=== PATIENT | male | born 1995 | race African-American/Black ===

== ENCOUNTER 2017-07-01 23:21 | Emergency (ER) | payer BC ==
[~2017-07-01] VITALS: Ht 188 cm; Wt 68.2 kg
[2017-07-01 23:22] VITALS: BP 137/87
== END 2017-07-02 03:08 | disposition left against medical advice (07) ==
LOC: M ED 23:21
DX: M54.9 Dorsalgia, unspecified (principal); Z53.21 Procedure and treatment not carried out due to patient leaving prior to being seen by health care provider

== ENCOUNTER 2017-07-14 12:05 | Inpatient (IN) | payer BC ==
[~2017-07-14] VITALS: Ht 188 cm; Wt 64.0 kg
[2017-07-14] MEDS ORDERED: muscle relaxer (12:14)
[2017-07-14 12:52] LABS: MEAN CORPUSCULAR HEMOGLOBIN 26.7 pg (27.0-33.0); MEAN CORPUSCULAR HGB CONC 32.1 g/dl (32.0-36.5); MEAN CORPUSCULAR VOLUME 83.1 fl (80.0-96.0); PLATELET COUNT, AUTOMATED 436 10^3/uL (150-450); RED CELL DISTRIBUTION WIDTH 12.4 % (11.5-14.5); WHITE BLOOD COUNT 8.5 10^3/uL (4.0-10.0)
[2017-07-14 13:14] LABS: METHADONE URINE NEGATIVE (NEGATIVE)
[2017-07-14 13:22] LABS: ALBUMIN 3.8 GM/DL (3.2-5.2); ALBUMIN/GLOBULIN RATIO 0.81 (1.00-1.93); ALKALINE PHOSPHATASE 101 U/L (45-117); ALT/SGPT 44 U/L (12-78); ANION GAP 8 MEQ/L (8-16); AST/SGOT 59 U/L (7-37); BILIRUBIN,DIRECT 0.1 MG/DL (0.0-0.2); BILIRUBIN,TOTAL 0.4 MG/DL (0.2-1.0); BLOOD UREA NITROGEN 16 MG/DL (7-18); CARBON DIOXIDE LEVEL 29 MEQ/L (21-32); CHLORIDE LEVEL 104 MEQ/L (98-107); CREATININE FOR GFR 1.04 MG/DL (0.70-1.30); GLOMERULAR FILTRATION RATE > 60.0 (>60); GLUCOSE, FASTING 81 MG/DL (70-105); POTASSIUM SERUM 3.8 MEQ/L (3.5-5.1); SODIUM LEVEL 141 MEQ/L (136-145); TOTAL PROTEIN 8.5 GM/DL (6.4-8.2)
[2017-07-14] MEDS ORDERED: MOM 30ML SUSPENSION UDC PO PRN (14:30)
[2017-07-14] MEDS ORDERED: MAALOX 30 ML SUSP *UDC PO PRN (14:30)
[2017-07-14] MEDS ORDERED: ACETAMINOPHEN TAB 650MG DOSE (2X325MG) PO PRN (14:30)
[2017-07-14 15:40] VITALS: BP 147/69
--- NOTE | 2017-07-14 17:01 | MHHPEPDOC ---
[facility] History & Physical History and Physical DATE OF ADMISSION: Jul 14, 2017 at 14:30 LEGAL STATUS AT ADMISSION: CHIEF COMPLAINT: SI HISTORY OF PRESENT ILLNESS: Patient is a 22-year-old male, no reported PMH, no prior PSH, no prior psychiatric hospitalizations, no prior SA, presents for depression and SI. Patient endorses feeling depressed, poor concentration, lost 15 lbs in 2 weeks due to depression, poor sleep for about 2 weeks, with SI without intent and plan beginning today. Denies manic symptoms, denies AVH, denies PTSD symptoms. Patient describes waking up in the middle of the night feeling anxious, which he attributes to his limbs jerking and to having a feeling that he is falling or dying in his sleep. Currently denies SI intent and plan. Denies depression for more than a few weeks in the past, though has cut his wrists when he was a teenager. Denies history of SI intent and plan prior to this episode. Recent stressor includes issues with his gf, stress involving having a baby 1 month ago and caring for the baby, disputes about paying for rent. Patient moved to [place] a few months ago without family. Of note, patient was advised to come to the hospital by his vocational case manager. Sees therapist at [facility], has seen only once, last week. Has not seen a psychiatrist in the past. 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 MENTAL STATUS EXAMINATION: General appearance: casually groomed Speech: normal RRVT Thought processes: linear Thought content: appropriate to conversation Judgment: fair Insight: fair Orientation: AAOx3 Mood: "overwhelmed" Affect: anxious DIAGNOSES: 1. Acute stress disorder 2. cannabis use disorder ASSESSMENT: PROBLEM LIST: 1. SI 2. depression 3. MJ use INITIAL TREATMENT PLAN: 1. Patient was admitted on a . 2. Complete history was obtained. 3. With patients permission, family will be contacted and database will be expanded. 4. Patients medication regimen will be reviewed and changed accordingly. 5. Patient will be provided with protected environment. 6. Patient will be treated with individual, group, and milieu therapies. 7. Patient will receive supportive psych-education. 8. Discharge planning will commence immediately. 9. Outpatient follow-up treatment will be strongly recommended. - Begin gabapentin 300 mg qhs for sleep and anxiety - Mirtazapine 7.5 mg qhs for sleep and appetite - PRN: tylenol, MOM, mylanta, trazodone ESTIMATED LENGTH OF STAY: 3 DAYS. TIME SPENT COUNSELING AND COORDINATING INITIAL CARE: 20 minutes. Vital Signs Vital Signs Date Time Temp Pulse Resp B/P (MAP) Pulse Ox O2 Delivery O2 Flow Rate FiO2 07/14/17 15:04 81 18 143/83 (103) 07/14/17 12:36 97.1 07/14/17 12:09 100 Laboratory Data 24H Labs Laboratory Tests 2 07/14/17 12:33: Nucleated Red Blood Cells % (auto) 0.0, Anion Gap 8, Glomerular Filtration Rate > 60.0, Calcium Level 9.0, Aspartate Amino Transf (AST/SGOT) 59H, Alanine Aminotransferase (ALT/SGPT) 44, Alkaline Phosphatase 101, Total Bilirubin 0.4, Direct Bilirubin 0.1, Total Protein 8.5H, Albumin 3.8, Albumin/Globulin Ratio 0.81L, Thyroid Stimulating Hormone (TSH) 0.720, Salicylates Level < 1.7L, Urine Amphetamines Screen NEGATIVE, Urine Benzodiazepines Screen NEGATIVE, Urine Opiates Screen NEGATIVE, Urine Methadone Screen NEGATIVE, Acetaminophen Level < 2.0L, Urine Barbiturates Screen NEGATIVE, Urine Phencyclidine Screen NEGATIVE, Urine Cocaine Metabolite Screen NEGATIVE, Urine Cannabinoids Screen POSITIVEH, Ethyl Alcohol Level < 0.003 CBC/BMP Laboratory Tests 07/14/17 12:33 Red Blood Count 4.91, Mean Corpuscular Volume 83.1, Mean Corpuscular Hemoglobin 26.7 L, Mean Corpuscular Hemoglobin Concent 32.1, Red Cell Distribution Width 12.4 Medications Miscellaneous Medications [muscle relaxer] , (Reported) Allergies Coded Allergies: No Known Allergies (Unverified , 07/01/17) KYE BARRAZA MD Jul 14, 2017 16:51
[2017-07-14] MEDS: GABAPENTIN 300 MG CAP PO SCH (21:20)
[2017-07-14] MEDS: MIRTAZAPINE 7.5MG PER 1/2 TABLET PO SCH (21:20)
[2017-07-14] MEDS: traZODone 50 MG TAB PO PRN (21:21)
[2017-07-15 06:31] VITALS: BP 105/65
[2017-07-15] MEDS: NICOTINE 21MG/24HR 1 EA TRANSDERMAL TD SCH (09:00)
--- NOTE | 2017-07-15 09:17 | MHIPNPDOC ---
[facility] Progress Note Progress Note DATE OF SERVICE: 07/15/17 HISTORY: Patient reports sleeping 9 hours last night, without nightmare of feeling like he is dying. Patient reports depressed mood last night, currently still depressed but not to the point of wishing to cry. Denies unwarranted side effects from medications. Patient denies SI intent and plan. Asks about other medications available for "daytime" usage. VITAL SIGNS: See below. NEW TEST RESULTS: NA CURRENT MEDICATIONS: See below. MENTAL STATUS EXAMINATION: General appearance: casually groomed Speech: normal RRVT Thought processes: linear Thought content: appropriate to conversation Judgment: fair Insight: fair Orientation: AAOx3 Mood: "overwhelmed" Affect: anxious DIAGNOSES: 1. Acute stress disorder 2. cannabis use disorder ASSESSMENT: PROBLEM LIST: 1. SI 2. depression 3. MJ use - Continue gabapentin 300 mg qhs for sleep and anxiety - Continue Mirtazapine 7.5 mg qhs for sleep and appetite - PRN: tylenol, MOM, mylanta, trazodone ESTIMATED LENGTH OF STAY: 5 DAYS. TIME SPENT COUNSELING AND COORDINATING INITIAL CARE: 20 minutes. Vital Signs Vital Signs Date Time Temp Pulse Resp B/P (MAP) Pulse Ox O2 Delivery O2 Flow Rate FiO2 07/15/17 06:31 98.1 56 16 105/65 (78) 07/14/17 15:40 97 Room Air Laboratory Data 24H Labs Laboratory Tests 2 07/14/17 12:33: Nucleated Red Blood Cells % (auto) 0.0, Anion Gap 8, Glomerular Filtration Rate > 60.0, Calcium Level 9.0, Aspartate Amino Transf (AST/SGOT) 59H, Alanine Aminotransferase (ALT/SGPT) 44, Alkaline Phosphatase 101, Total Bilirubin 0.4, Direct Bilirubin 0.1, Total Protein 8.5H, Albumin 3.8, Albumin/Globulin Ratio 0.81L, Thyroid Stimulating Hormone (TSH) 0.720, Salicylates Level < 1.7L, Urine Amphetamines Screen NEGATIVE, Urine Benzodiazepines Screen NEGATIVE, Urine Opiates Screen NEGATIVE, Urine Methadone Screen NEGATIVE, Acetaminophen Level < 2.0L, Urine Barbiturates Screen NEGATIVE, Urine Phencyclidine Screen NEGATIVE, Urine Cocaine Metabolite Screen NEGATIVE, Urine Cannabinoids Screen POSITIVEH, Ethyl Alcohol Level < 0.003 CBC/BMP Laboratory Tests 07/14/17 12:33 Red Blood Count 4.91, Mean Corpuscular Volume 83.1, Mean Corpuscular Hemoglobin 26.7 L, Mean Corpuscular Hemoglobin Concent 32.1, Red Cell Distribution Width 12.4 Current Medications Current Medications Acetaminophen (Tylenol Tab) 650 mg Q6HP PRN PO HEADACHE or DISCOMFORT; Start 07/14/17 at 14:30; Stop 08/13/17 at 14:29 Al Hydrox/Mg Hydrox/Simethicone (Mylanta) 30 ml Q4HP PRN PO HEARTBURN/ INDIGESTION; Start 07/14/17 at 14:30; Stop 08/13/17 at 14:29 Gabapentin (Neurontin) 300 mg QHS PO Last administered on 07/14/17 21:20; Start 07/14/17 at 21:00; Stop 08/13/17 at 20:59 Magnesium Hydroxide (Milk Of Magnesia) 30 ml DAILYPRN PRN PO CONSTIPATION; Start 07/14/17 at 14:30; Stop 08/13/17 at 14:29 Mirtazapine (Remeron) 7.5 mg QHS PO Last administered on 07/14/17 21:20; Start 07/14/17 at 21:00; Stop 08/13/17 at 20:59 Nicotine (Nicoderm Cq 21mg) 1 patch DAILY TD ; Start 07/15/17 at 09:00; Stop 08/14/17 at 08:59 Trazodone HCl (Desyrel) 50 mg QHSP PRN PO INSOMNIA Last administered on 21:21; Start 07/14/17 at 14:30; Stop 08/13/17 at 14:29 Allergies Coded Allergies: No Known Allergies (Unverified , 07/01/17) KYE BARRAZA MD Jul 15, 2017 09:17
[2017-07-15 18:00] VITALS: BP 138/80
[2017-07-15] MEDS: traZODone 50 MG TAB PO PRN (20:28)
[2017-07-15] MEDS: GABAPENTIN 300 MG CAP PO SCH (20:28)
[2017-07-15] MEDS: MIRTAZAPINE 7.5MG PER 1/2 TABLET PO SCH (20:28)
[2017-07-16 07:07] VITALS: BP 110/60
[2017-07-16] MEDS: NICOTINE 21MG/24HR 1 EA TRANSDERMAL TD SCH (08:06)
--- NOTE | 2017-07-16 09:55 | MHIPNPDOC ---
[facility] Progress Note Progress Note DATE OF SERVICE: 07/16/17 HISTORY: Patient reports good sleep, denies side effects, states his mood is good, denies SI intent and plan. States he believes he is ready to go home. Motivated to seek outpatient treatment and to continue medications outpatient. VITAL SIGNS: See below. NEW TEST RESULTS: NA CURRENT MEDICATIONS: See below. MENTAL STATUS EXAMINATION: General appearance: casually groomed Speech: normal RRVT Thought processes: linear Thought content: appropriate to conversation Judgment: fair Insight: fair Orientation: AAOx3 Mood: "good" Affect: euthymic, appropriate DIAGNOSES: 1. Acute stress disorder 2. cannabis use disorder ASSESSMENT: Patient's mood has been improving, largely due to better sleep. PROBLEM LIST: 1. SI 2. depression 3. MJ use - Continue gabapentin 300 mg qhs for sleep and anxiety - Continue Mirtazapine 7.5 mg qhs for sleep and appetite - PRN: tylenol, MOM, mylanta, trazodone - Discharge on Monday ESTIMATED LENGTH OF STAY: 5 DAYS. TIME SPENT COUNSELING AND COORDINATING INITIAL CARE: 20 minutes. Vital Signs Vital Signs Date Time Temp Pulse Resp B/P (MAP) Pulse Ox O2 Delivery O2 Flow Rate FiO2 07/16/17 07:07 97.6 50 14 110/60 (77) 07/14/17 15:40 97 Room Air Current Medications Current Medications Acetaminophen (Tylenol Tab) 650 mg Q6HP PRN PO HEADACHE or DISCOMFORT; Start 07/14/17 at 14:30; Stop 08/13/17 at 14:29 Al Hydrox/Mg Hydrox/Simethicone (Mylanta) 30 ml Q4HP PRN PO HEARTBURN/ INDIGESTION; Start 07/14/17 at 14:30; Stop 08/13/17 at 14:29 Gabapentin (Neurontin) 300 mg QHS PO Last administered on 07/15/17 20:28; Start 07/14/17 at 21:00; Stop 08/13/17 at 20:59 Magnesium Hydroxide (Milk Of Magnesia) 30 ml DAILYPRN PRN PO CONSTIPATION; Start 07/14/17 at 14:30; Stop 08/13/17 at 14:29 Mirtazapine (Remeron) 7.5 mg QHS PO Last administered on 07/15/17 20:28; Start 07/14/17 at 21:00; Stop 08/13/17 at 20:59 Nicotine (Nicoderm Cq 21mg) 1 patch DAILY TD ; Start 07/15/17 at 09:00; Stop 08/14/17 at 08:59 Trazodone HCl (Desyrel) 50 mg QHSP PRN PO INSOMNIA Last administered on t 20:28; Start 07/14/17 at 14:30; Stop 08/13/17 at 14:29 Allergies Coded Allergies: No Known Allergies (Unverified , 07/01/17) KYE BARRAZA MD Jul 16, 2017 09:55
--- NOTE | 2017-07-16 11:36 | HPE ---
DATE OF ADMISSION: 07/14/2017 Please refer to the psychiatric history and evaluation for further details on this admission. This examination and history is intended for medical issues which may need treatment, followup or consultation on this 22-year-old male. ALLERGIES: No known allergies. PRIMARY CARE PROVIDER: He does not currently have one. He has recently moved here from [place], he states to be with his daughter. SOCIAL HISTORY: He is single. He has a one month old girl. ETOH - none. Smokes - one cigarette per day. Recreational drug use - none. PAST MEDICAL HISTORY: Negative. PAST SURGICAL HISTORY: Negative. HOME MEDICATIONS: None. FAMILY HISTORY: Noncontributory. LABORATORY STUDIES: WBC 8.5, hemoglobin 15.1, hematocrit 40.8 and platelets 436. Electrolytes are normal. BUN 16, creatinine 1.04. AST 59. ALT 44. TSH is 0.720. REVIEW OF SYSTEMS: Ten systems review was done and was unremarkable. PHYSICAL EXAMINATION: 22-year-old cooperative male in no acute distress. Height 74 inches. Weight 65.9 kg. Body mass index (BMI) 18.7. Blood pressure 140/80. Pulse 80. Respirations 18. Temperature 98. The patient is alert and oriented times three. Pupils equal and reactive to light. Extraocular movements intact. Cornea and sclera clear. Conjunctiva normal. No facial asymmetry. Pharynx, tongue and gums pink and moist. Tongue is midline. Neck is supple, without lymphadenopathy. No thyromegaly. No goiter. Chest clear to auscultation, without wheeze or retraction. Heart is regular. Abdomen benign. Bowel sounds positive. Genitourinary ()/Rectal: Not done. Extremities show equal strength, full range of motion. No cyanosis, clubbing or edema. Peripheral pulses equal and palpable bilaterally. Skin is warm and dry. IMPRESSION AND PLAN: 1. Psychiatric. Plan per psychiatry. 2. History of elevated AST. Will recheck labs in the a.m.
[2017-07-16 18:00] VITALS: BP 118/82
[2017-07-16] MEDS: GABAPENTIN 300 MG CAP PO SCH (20:17)
[2017-07-16] MEDS: traZODone 50 MG TAB PO PRN (20:17)
[2017-07-16] MEDS: MIRTAZAPINE 7.5MG PER 1/2 TABLET PO SCH (20:17)
[2017-07-17 06:00] VITALS: BP 129/61
--- NOTE | 2017-07-17 09:30 | MHDSPDOC ---
[facility] Discharge Summary Discharge Summary DATE OF ADMISSION: Jul 14, 2017 at 14:30 DATE OF DISCHARGE: 07/17/17 DISCHARGE DIAGNOSES: 1. MDD 2. cannabis use disorder REASON FOR ADMISSION: 22-year-old male, no reported PMH, no prior PSH, no prior psychiatric hospitalizations, no prior SA, presents for depression and SI. Patient endorses feeling depressed, poor concentration, lost 15 lbs in 2 weeks due to depression, poor sleep for about 2 weeks, with SI without intent and plan beginning today. Denies manic symptoms, denies AVH, denies PTSD symptoms. Patient describes waking up in the middle of the night feeling anxious, which he attributes to his limbs jerking and to having a feeling that he is falling or dying in his sleep. Currently denies SI intent and plan. Denies depression for more than a few weeks in the past, though has cut his wrists when he was a teenager. Denies history of SI intent and plan prior to this episode. Recent stressor includes issues with his gf, stress involving having a baby 1 month ago and caring for the baby, disputes about paying for rent. Patient moved to [place] a few months ago without family. Of note, patient was advised to come to the hospital by his shelter case manager. Patient mentioned experiencing restlessness at night, in which his limbs would kick out, giving him dreams of dying or falling, waking him up. Patient denies nightmares of prior trauma, did not mention sleep walking. Denies feeling any tingling pain in his legs. Patient only sleeping several hours at night due to anxiety. Sees therapist at [facility], has seen only once, last week. Has not seen a psychiatrist in the past. CONSULTANTS INVOLVED: NA TREATMENT AND PROGRESS ON THE UNIT : Patient was put on mirtazapine 7.5 mg qhs for sleep, mood, and appetite, and gabapentin 300 mg qhs for his nighttime restlessless. Patient began sleeping 8 hours on the unit, and his mood improved over the hospital course. Patient attributes his improvement in mood to sleeping better. Patient also stated that his appetite returned. He was cooperative and sociable on the unit. DISCHARGE ASSESSMENT: Patient was euthymic, related, future oriented, and motivated to continue outpatient treatment. MENTAL STATUS EXAMINATION ON DISCHARGE: Denise: Thin AA male, casually groomed Behavior: calm, cooperative, good eye contact, related Speech normal RRVT. Thought processes including: linear Thought content: appropriate to conversation Judgment: fair Insight: fair Orientation to AAOx3 Mood: good Affect: euthymic, appropriate MEDICATIONS ON DISCHARGE: - Continue gabapentin 300 mg qhs for sleep and anxiety - Continue Mirtazapine 7.5 mg qhs for sleep and appetite PLAN/FOLLOWUP ARRANGEMENTS: [facility] The amount of time spent in the coordination of care for this patient was approximately minutes. Vital Signs/I&Os Vital Signs Date Time Temp Pulse Resp B/P (MAP) Pulse Ox O2 Delivery O2 Flow Rate FiO2 07/17/17 06:00 98.1 66 14 129/61 (83) 07/14/17 15:40 97 Room Air Medications Miscellaneous Medications [muscle relaxer] , (Reported) Allergies Coded Allergies: No Known Allergies (Unverified , 07/01/17) KYE BARRAZA MD Jul 17, 2017 09:30
[2017-07-17] MEDS ORDERED: MIRT15TA3 PO (09:33)
[2017-07-17] MEDS ORDERED: GABA-282 PO (09:33)
[2017-07-17] MEDS: NICOTINE 21MG/24HR 1 EA TRANSDERMAL TD SCH (10:14)
== END 2017-07-17 13:10 | disposition home or self-care (01) | DRG 754 ==
LOC: M ED 12:05 → M ED INP 14:30 → M PSY 15:32
PROVIDERS: ADMIT Psychiatry & Neurology Psychiatry; ATTEND Psychiatry & Neurology Psychiatry
DX: F32.9 Major depressive disorder, single episode, unspecified (principal); F12.90 Cannabis use, unspecified, uncomplicated

== ENCOUNTER → 2017-10-21 | Outpatient (REF) | payer BC ==
[2017-10-21 22:49] LABS: CHLAMYDIA DNA AMPLIFICATION NEGATIVE (NEGATIVE); GC DNA AMPLIFICATION NEGATIVE (NEGATIVE)
== END ==
LOC: M LAB REF 09:18
DX: A74.9 Chlamydial infection, unspecified (principal)
CPT/HCPCS: 87591

== ENCOUNTER 2017-10-29 17:37 | Emergency (ER) | payer BC ==
[2017-10-29 19:29] LABS: BASO % 0.5 % (0.0-1.0); EOS # 0.2 10^3/uL (0.0-0.50); HEMATOCRIT 37.5 % (42.0-52.0); HEMOGLOBIN 12.3 g/dl (14.0-18.0); IMMATURE GRANULOCYTE % 0.2 % (0-3.0); LYMPH # 2.3 10^3/uL (1.5-6.5); LYMPH % 28.2 % (24.0-44.0); MEAN CORPUSCULAR HEMOGLOBIN 27.6 pg (27.0-33.0); MEAN CORPUSCULAR HGB CONC 32.8 g/dl (32.0-36.5); MEAN CORPUSCULAR VOLUME 84.1 fl (80.0-96.0); MONO # 0.5 10^3/uL (0.0-0.8); MONO % 6.7 % (0.0-5.0); NEUTROPHILS % 62.4 % (36.0-66.0); PLATELET COUNT, AUTOMATED 231 10^3/uL (150-450); RED BLOOD COUNT 4.46 10^6/uL (4.30-6.10); RED CELL DISTRIBUTION WIDTH 12.3 % (11.5-14.5)
[2017-10-29 19:48] LABS: INR 1.09; PROTHROMBIN TIME 14.3 SECONDS (12.4-14.5)
[2017-10-29 19:49] LABS: PARTIAL THROMBOPLASTIN TIME 29.5 SECONDS (26.8-37.9)
[2017-10-29 19:56] LABS: ALBUMIN 3.6 GM/DL (3.2-5.2); ALKALINE PHOSPHATASE 118 U/L (45-117); ALT/SGPT 40 U/L (12-78); ANION GAP 8 MEQ/L (8-16); AST/SGOT 48 U/L (7-37); BILIRUBIN,TOTAL 0.4 MG/DL (0.2-1.0); BLOOD UREA NITROGEN 12 MG/DL (7-18); CALCIUM LEVEL 8.7 MG/DL (8.5-10.1); CARBON DIOXIDE LEVEL 28 MEQ/L (21-32); CHLORIDE LEVEL 106 MEQ/L (98-107); GLOMERULAR FILTRATION RATE > 60.0 (>60); GLUCOSE, FASTING 96 MG/DL (70-100); POTASSIUM SERUM 3.7 MEQ/L (3.5-5.1); SODIUM LEVEL 142 MEQ/L (136-145); TOTAL PROTEIN 7.2 GM/DL (6.4-8.2)
[2017-10-29] MEDS: SIMETHICONE 80 MG CHEW TAB PO (20:35)
== END 2017-10-29 20:37 | disposition home or self-care (01) ==
LOC: M ED 17:37
DX: K92.1 Melena (principal); F17.200 Nicotine dependence, unspecified, uncomplicated
CPT/HCPCS: 80053

== ENCOUNTER 2018-07-08 13:00 | Emergency (ER) | payer BC ==
[2018-07-08 13:35] LABS: BASO % 0.1 % (0.0-1.0); EOS % 0.1 % (0.0-3.0); HEMATOCRIT 41.5 % (42.0-52.0); HEMOGLOBIN 13.5 g/dl (13.5-17.5); IMMATURE GRANULOCYTE % 0.4 % (0-3.0); LYMPH # 0.8 10^3/uL (1.5-6.5); LYMPH % 5.8 % (24.0-44.0); MEAN CORPUSCULAR HEMOGLOBIN 27.9 pg (27.0-33.0); MEAN CORPUSCULAR HGB CONC 32.5 g/dl (32.0-36.5); MEAN CORPUSCULAR VOLUME 85.7 fl (80.0-96.0); MONO # 0.5 10^3/uL (0.0-0.8); MONO % 3.7 % (0.0-5.0); NEUTROPHILS % 89.9 % (36.0-66.0); PLATELET COUNT, AUTOMATED 228 10^3/uL (150-450); RED BLOOD COUNT 4.84 10^6/uL (4.30-6.10); RED CELL DISTRIBUTION WIDTH 12.2 % (11.5-14.5); WHITE BLOOD COUNT 13.4 10^3/uL (4.0-10.0)
[2018-07-08 14:02] LABS: INFLUENZA A AMPLIFICATION NEGATIVE (NEGATIVE); INFLUENZA B AMPLIFICATION NEGATIVE (NEGATIVE)
[2018-07-08] MEDS: IBUPROFEN 600 MG TAB PO (14:15)
[2018-07-08 14:16] LABS: D-DIMER QUANT < 270 ng/ml (<500)
[2018-07-08 14:16] LABS: ANION GAP 6 MEQ/L (8-16); BLOOD UREA NITROGEN 9 MG/DL (7-18); CALCIUM LEVEL 8.6 MG/DL (8.5-10.1); CARBON DIOXIDE LEVEL 29 MEQ/L (21-32); CHLORIDE LEVEL 105 MEQ/L (98-107); CPK CREATINE PHOSPHOKINASE 549 U/L (39-308); CREATININE FOR GFR 1.13 MG/DL (0.70-1.30); GLOMERULAR FILTRATION RATE > 60.0 (>60); GLUCOSE, FASTING 90 MG/DL (70-100); MB/CK RELATIVE INDEX 0.22 (< OR =4); POTASSIUM SERUM 4.1 MEQ/L (3.5-5.1); SODIUM LEVEL 140 MEQ/L (136-145); THYROID STIMULATING HORMONE 0.399 uIU/ML (0.358-3.740); TROPONIN I 0.02 NG/ML (< 0.10)
[2018-07-08] MEDS: NORCO, ANEXSIA 5/325MG TABLET (HYDROcodone/ACETAMINOPHEN) PO (14:22)
[2018-07-08] MEDS: NS 1,000 ML IV (14:22)
[2018-07-08 15:02] LABS: APPEARANCE, URINE CLEAR (CLEAR); BACTERIA, URINE AUTO NEGATIVE (NEGATIVE); BILIRUBIN, URINE AUTO NEGATIVE (NEGATIVE); BLOOD, URINE BLOOD NEGATIVE (NEGATIVE); COLOR, URINE YELLOW (YELLOW); GLUCOSE, URINE (UA) AUTO NEGATIVE (NEGATIVE); KETONE, URINE AUTO NEGATIVE (NEGATIVE); LEUKOCYTE ESTERASE, URINE AUTO TRACE (NEGATIVE); MUCUS, URINE SMALL (NEGATIVE); NITRITE, URINE AUTO NEGATIVE (NEGATIVE); PROTEIN, URINE AUTO 1+ mg/dL (NEGATIVE); RBC, URINE AUTO 5 /HPF (0-3); SPECIFIC GRAVITY URINE AUTO 1.024 (1.002-1.035); SQUAMOUS EPITHELIAL CELL UR AU 2 /HPF (0-6); WBC, URINE AUTO 1 /HPF (0-3)
[2018-07-08 15:04] LABS: ERYTHROCYTE SEDIMENTATION RATE 5 mm/hr (0-15)
[2018-07-08 15:19] LABS: AMPHETAMINES LEVEL URINE NEGATIVE (NEGATIVE); BARBITURATES URINE NEGATIVE (NEGATIVE); BENZODIAZEPINES URINE POSITIVE (NEGATIVE); CANNABINOIDS URINE POSITIVE (NEGATIVE); COCAINE METABOLITE URINE NEGATIVE (NEGATIVE); METHADONE URINE NEGATIVE (NEGATIVE); OPIATES URINE NEGATIVE (NEGATIVE); PHENCYCLIDINE URINE NEGATIVE (NEGATIVE)
[2018-07-08 15:48] LABS: CK-MB VALUE MASS < 1.0 NG/ML (<3.6); CPK CREATINE PHOSPHOKINASE 474 U/L (39-308); MB/CK RELATIVE INDEX 0.21 (< OR =4); TROPONIN I 0.03 NG/ML (< 0.10)
== END 2018-07-08 16:28 | disposition home or self-care (01) ==
LOC: M ED 13:00
DX: R07.89 Other chest pain (principal); B34.9 Viral infection, unspecified; F17.210 Nicotine dependence, cigarettes, uncomplicated
CPT/HCPCS: 71046

== ENCOUNTER 2018-07-09 01:35 | Emergency (ER) | payer BC ==
[2018-07-09] MEDS ORDERED: ISOVUE-370 76% 100ML VIAL (Q9967) As Ordered (02:14)
[2018-07-09] MEDS: NS 1,000 ML IV (02:29)
[2018-07-09] MEDS: KETOROLAC 30 MG/ML VIAL (J1885) IV (02:29)
[2018-07-09 03:01] LABS: HEMATOCRIT 38.4 % (42.0-52.0); HEMOGLOBIN 12.7 g/dl (13.5-17.5); MEAN CORPUSCULAR HEMOGLOBIN 28.3 pg (27.0-33.0); MEAN CORPUSCULAR HGB CONC 33.1 g/dl (32.0-36.5); MEAN CORPUSCULAR VOLUME 85.5 fl (80.0-96.0); PLATELET COUNT, AUTOMATED 196 10^3/uL (150-450); RED BLOOD COUNT 4.49 10^6/uL (4.30-6.10); RED CELL DISTRIBUTION WIDTH 12.1 % (11.5-14.5); WHITE BLOOD COUNT 8.9 10^3/uL (4.0-10.0)
[2018-07-09 03:04] LABS: INR 1.51; PROTHROMBIN TIME 18.4 SECONDS (12.1-14.4)
[2018-07-09 03:05] LABS: PARTIAL THROMBOPLASTIN TIME 32.9 SECONDS (25.4-37.6)
[2018-07-09 03:10] LABS: INFLUENZA A AMPLIFICATION NEGATIVE (NEGATIVE); INFLUENZA B AMPLIFICATION NEGATIVE (NEGATIVE)
[2018-07-09 03:16] LABS: ADD MANUAL DIFFER YES; DIFF SLIDE NUMBER 128; POSITIVE MORPH POS FLAG
[2018-07-09 03:24] LABS: ALBUMIN 3.4 GM/DL (3.2-5.2); ALKALINE PHOSPHATASE 83 U/L (45-117); ALT/SGPT 19 U/L (12-78); ANION GAP 8 MEQ/L (8-16); AST/SGOT 26 U/L (7-37); BILIRUBIN,DIRECT 0.2 MG/DL (0.0-0.2); BILIRUBIN,TOTAL 0.8 MG/DL (0.2-1.0); BLOOD UREA NITROGEN 14 MG/DL (7-18); CALCIUM LEVEL 8.3 MG/DL (8.5-10.1); CARBON DIOXIDE LEVEL 25 MEQ/L (21-32); CHLORIDE LEVEL 106 MEQ/L (98-107); CK-MB VALUE MASS < 1.0 NG/ML (<3.6); CPK CREATINE PHOSPHOKINASE 402 U/L (39-308); CREATININE FOR GFR 1.21 MG/DL (0.70-1.30); FREE T4 1.05 NG/DL (0.76-1.46); GLOMERULAR FILTRATION RATE > 60.0 (>60); GLUCOSE, FASTING 96 MG/DL (70-100); LIPASE 76 U/L (73-393); MB/CK RELATIVE INDEX 0.25 (< OR =4); POTASSIUM SERUM 3.8 MEQ/L (3.5-5.1); SODIUM LEVEL 139 MEQ/L (136-145); THYROID STIMULATING HORMONE 0.386 uIU/ML (0.358-3.740); TOTAL PROTEIN 6.5 GM/DL (6.4-8.2); TROPONIN I < 0.02 NG/ML (< 0.10)
[2018-07-09 03:28] LABS: CONTROL LINE MONO INT CTR LINE PRESENT; MONO SCRN NEGATIVE (NEGATIVE)
[2018-07-09] MEDS: AZITHROMYCIN 250 MG TAB PO (03:35)
[2018-07-09] MEDS: cefTRIAXone SOD 1 GM in D5W MINI-BAG PLUS 50 ML IV (03:35)
[2018-07-09 03:44] LABS: BANDS 14 % (< 11); LYMPHOCYTES 14 % (16-52); MONOCYTES 3 % (0-8); NEUTROPHILS 69 % (35-75)
[2018-07-09 03:46] LABS: ANISOCYTOSIS 1+; PLATELET ESTIMATE NORMAL (NORMAL)
== END 2018-07-09 04:21 | disposition home or self-care (01) ==
LOC: M ED 01:35
DX: J18.9 Pneumonia, unspecified organism (principal)
CPT/HCPCS: Q9967

== ENCOUNTER 2019-07-02 05:07 | Emergency (ER) | payer BC ==
[~2019-07-02] VITALS: Ht 190.5 cm; Wt 68.2 kg
[~2019-07-02 05:07] MED LIST: AZIT-12 PO; GABA-843 PO; IBUP-1022 PO; MIRT15TA3 PO; SIME180C PO; muscle relaxer
[2019-07-02] MEDS ORDERED: CYCLOBENZAPRINE 10 MG TAB PO ONE (06:45)
[2019-07-02] MEDS ORDERED: NAPROXEN 250 MG TAB PO ONE (06:45)
[2019-07-02] MEDS ORDERED: CYCL10TA PO (07:33)
[2019-07-02] MEDS ORDERED: NAPR-837 PO (07:33)
[2019-07-02 07:41] VITALS: BP 138/95
== END 2019-07-02 07:50 | disposition home or self-care (01) ==
LOC: M ED 05:07
DX: M54.5 Low back pain (principal); F17.210 Nicotine dependence, cigarettes, uncomplicated

== ENCOUNTER 2019-08-15 10:46 | Emergency (ER) | payer BC, MEDICAID, SELFPAY ==
[~2019-08-15] VITALS: Ht 190.5 cm; Wt 69.4 kg
[~2019-08-15 10:46] MED LIST changes: +CYCL10TA PO; +NAPR-837 PO
[2019-08-15] MEDS ORDERED: ONDANSETRON 4 MG ORAL DISINTEGRATING TAB (Q0162 PER 1MG) PO ONE (11:30)
[2019-08-15 11:48] LABS: BASO % 0.2 % (0.0-1.0); EOS # 0.1 10^3/uL (0.0-0.5); EOS % 1.8 % (0.0-3.0); HEMATOCRIT 44.5 % (42.0-52.0); HEMOGLOBIN 14.4 g/dl (13.5-17.5); LYMPH # 0.6 10^3/uL (1.5-5.0); LYMPH % 8.8 % (24.0-44.0); MEAN CORPUSCULAR HEMOGLOBIN 28.1 pg (27.0-33.0); MEAN CORPUSCULAR HGB CONC 32.4 g/dl (32.0-36.5); MEAN CORPUSCULAR VOLUME 86.9 fl (80.0-96.0); MONO # 0.3 10^3/uL (0.0-0.8); NEUTROPHILS # 5.2 10^3/uL (1.5-8.5); NEUTROPHILS % 83.7 % (36.0-66.0); PLATELET COUNT, AUTOMATED 298 10^3/uL (150-450); RED BLOOD COUNT 5.12 10^6/uL (4.30-6.10); WHITE BLOOD COUNT 6.2 10^3/uL (4.0-10.0)
[2019-08-15 12:32] LABS: BLOOD UREA NITROGEN 16 MG/DL (7-18); CALCIUM LEVEL 8.8 MG/DL (8.5-10.1); CARBON DIOXIDE LEVEL 30 MEQ/L (21-32); CHLORIDE LEVEL 107 MEQ/L (98-107); CREATININE FOR GFR 1.05 MG/DL (0.70-1.30); GLOMERULAR FILTRATION RATE > 60.0 (>60); GLUCOSE, FASTING 82 MG/DL (70-100); POTASSIUM SERUM 4.6 MEQ/L (3.5-5.1); SODIUM LEVEL 141 MEQ/L (136-145)
[2019-08-15] MEDS ORDERED: ONDA4TAB6 PO (14:06)
[2019-08-15 14:14] VITALS: BP 123/68
== END 2019-08-15 14:26 | disposition home or self-care (01) ==
LOC: M ED 10:46
DX: R11.2 Nausea with vomiting, unspecified (principal); R19.7 Diarrhea, unspecified; F17.210 Nicotine dependence, cigarettes, uncomplicated
CPT/HCPCS: 36415; 80048; 85025; 99283; Q0162

== ENCOUNTER 2020-04-30 15:29 | Emergency (ER) | payer MEDICAID, OTHER ==
[~2020-04-30] VITALS: Ht 190.5 cm; Wt 65.1 kg
[2020-04-30 15:29] VITALS: BP 155/96
[~2020-04-30 15:29] MED LIST changes: +CYCL-707 PO; -CYCL10TA PO; +ONDA4TAB6 PO
== END 2020-04-30 16:20 | disposition left against medical advice (07) ==
LOC: M ED 15:29
DX: F41.9 Anxiety disorder, unspecified (principal); Z53.20 Procedure and treatment not carried out because of patient's decision for unspecified reasons; F17.200 Nicotine dependence, unspecified, uncomplicated

== ENCOUNTER → 2020-09-02 | Outpatient (REF) ==
[~2020-09-02] MED LIST changes: +GABA-282 PO; -GABA-843 PO
[2020-09-03 06:08] LABS: RUBEOLA IgG ANTIBODY 46.2 AU/mL (Immune >16.4)
== END ==
LOC: M LAB 12:12
PROVIDERS: ATTEND Nurse Practitioner Adult Health
DX: Z00.00 Encounter for general adult medical examination without abnormal findings (principal)

== ENCOUNTER 2021-01-06 11:00 | Emergency (ER) | payer MEDICAID, SELFPAY ==
[~2021-01-06] VITALS: Ht 190.5 cm; Wt 68.2 kg
[~2021-01-06 11:00] MED LIST changes: -SIME180C PO; +SIME180C25 PO
[2021-01-06 11:01] VITALS: BP 131/75
== END 2021-01-06 11:55 | disposition left against medical advice (07) ==
LOC: M ED 11:00
DX: Z53.21 Procedure and treatment not carried out due to patient leaving prior to being seen by health care provider (principal)